=== PATIENT | female | born 1955 | race African-American/Black ===

== ENCOUNTER 2019-05-04 19:12 | Inpatient (IN) | payer MEDICARE, OTHER ==
[~2019-05-04] VITALS: Ht 170.2 cm; Wt 107.5 kg
--- NOTE | 2019-05-04 19:29 | NUR ---
BIB EMS FOR AGRESSIVE ABEHAVIOR AND PARANOIA. PT IS CALM AND COOPERATIVE ON ASSESSMENT. DENIES SI/HI. DENIES HALLUCINATIONS. REPORTS BEING UNSURE OF WHY SHE IS HERE. DENIES PAIN, SOB, DIZZINESS, WEAKNESS. NO ACUTE DISTRESS NOTED. SKIN WARM, DRY, INTACT. AOX3, VSS, RR EVEN AND UNLABORED ON RA. NON-AMBULATORY. READY FOR EVAL.
[2019-05-04 19:47] LABS: BASOPHILS % (AUTO) 0.5 % (0.0-2.0); EOSINOPHILS % (AUTO) 3.5 % (0.0-6.0); HEMATOCRIT 41 % (33-45); HEMOGLOBIN 13.7 g/dL (11.5-14.8); LYMPHOCYTES # (AUTO) 2.6 /CMM (0.8-4.8); LYMPHOCYTES % (AUTO) 39.5 % (20.0-44.0); MEAN CORPUSCULAR HGB CONC 34 g/dl (31.0-36.0); MEAN CORPUSCULAR VOLUME 88 fL (82-100); MONOCYTES # (AUTO) 0.5 /CMM (0.1-1.30); MONOCYTES % (AUTO) 7.1 % (2.0-12.0); NEUTROPHILS # (AUTO) 3.3 /CMM (1.8-8.9); NEUTROPHILS % (AUTO) 49.4 % (43.0-81.0); PLATELET COUNT (AUTO) 258 /CMM (150-450); WHITE BLOOD COUNT (AUTO) 6.6 K/uL (4.3-11.0)
[2019-05-04 20:00] LABS: CALCIUM, SERUM 9.2 mg/dL (8.5-10.1); CARBON DIOXIDE 28 mmol/L (21-32); CHLORIDE 107 mmol/L (98-107); GLUCOSE 122 mg/dL (74-106); POTASSIUM 3.9 mmol/L (3.5-5.1); SODIUM SERUM 144 mmol/L (136-145); UREA NITROGEN, BLOOD 16 mg/dL (7-18)
[2019-05-04 20:06] LABS: ALANINE AMINOTRANSFERASE 44 U/L (12-78); ALBUMIN 3.4 g/dL (3.4-5.0); ALCOHOL, BLOOD < 3 mg/dL (0-0); ALKALINE PHOSPHATASE 170 U/L (46-116); ASPARTATE AMINOTRANSFERASE 38 U/L (15-37); BILIRUBIN,TOTAL 0.2 mg/dL (0.2-1.0); TOTAL PROTEIN, SERUM 7.5 g/dL (6.4-8.2)
[2019-05-04 20:07] LABS: ACETAMINOPHEN 0 ug/ml (10-30)
--- NOTE | 2019-05-04 20:15 | NUR ---
BED ASSIGNMENT 213-B
--- NOTE | 2019-05-04 20:20 | NUR ---
PT UNABLE TO PROVIDE URINE SAMPLE AT THIS TIME. NOTIFIED.
--- NOTE | 2019-05-04 20:40 | NUR ---
CALLED [facility] WORKER. ON HER WAY
--- NOTE | 2019-05-04 20:58 | NUR ---
URINE COLLECTED AND SENT TO LAB
[2019-05-04 21:33] LABS: APPEARANCE,URINE Clear (CLEAR); BILIRUBIN,URINE Negative (NEGATIVE); BLOOD, URINE Trace-lysed Ery/uL (NEGATIVE); COLOR,URINE Yellow (YELLOW); KETONES,URINE Negative (NEGATIVE); LEUKOCYTE ESTERASE ,URINE Negative (NEGATIVE); NITRITE, URINE Negative (NEGATIVE); PROTEIN,URINE Negative (NEGATIVE); UGLUCOSE Negative (NEGATIVE); UROBILINOGEN,URINE 0.2 EU/dL (0.2)
[2019-05-04 21:34] LABS: BACTERIA,URINE None seen /HPF (None Seen); RBC,URINE 0-2 /HPF (0-2); SQUAMOUS EPITHELIAL CELL,UR Few /HPF (None Seen); WBC,URINE 0-2 /HPF (0-3)
--- NOTE | 2019-05-04 22:17 | NUR ---
REPORT GIVEN TO JANNA DOMINGUEZ FOR 214-A
--- NOTE | 2019-05-04 22:27 | NUR ---
PT TRANSFERRED TO UNIT VIA WHEELCHAIR
--- NOTE | 2019-05-04 22:30 | NUR ---
[facility] admissions nurse notes Admitted 63 YO female from ER. Pt admitted on 5150 due to aggressive behavior and delusional thinking. Upon face to face assessment, Pt is alert and oriented X3, feeling depressed, flat effect, and cooperative with care. Pt denies HI/SI at this time. No acute distress noted. Skin body assessment is done. Pt skin is intact. Pt rights handbook discussed to the patient. Pt belongings were inventoried and checked for contraband. Pt is under care psychiatric care of Dr. Monzon and under medical care of Dr. Gonzalez. Pt educated to the use of call martinez, bed alarm on, enviromental safety check done. Bed at low position and locked. Safety and fall precautions. Will continue to monitor Q 15 mins check for safety and behavior.
[2019-05-04 22:50] VITALS: BP 123/74
[2019-05-04] MEDS ORDERED: BLOOD SUGAR DIAGNOSTIC 1 EACH STRIP IN ONE (23:30)
[2019-05-04] MEDS ORDERED: MAG HYDROX/AL HYDROX/SIMETH 30 ML UDC PO PRN (23:30)
[2019-05-04] MEDS ORDERED: ZOLPIDEM TARTRATE 5 MG TABLET PO PRN (23:30)
[2019-05-04] MEDS ORDERED: LORAZEPAM 0.5 MG TABLET PO PRN (23:30)
[2019-05-04] MEDS ORDERED: MAGNESIUM HYDROXIDE 30 ML UDC PO PRN (23:30)
[2019-05-04] MEDS ORDERED: ACETAMINOPHEN 325 MG TABLET PO PRN (23:30)
[2019-05-04] MEDS ORDERED: BISA-79 (23:58)
[2019-05-04] MEDS ORDERED: MELA5TAB PO (23:58)
[2019-05-04] MEDS ORDERED: POLY17PO4 PO (23:58)
[2019-05-04] MEDS ORDERED: CARV12.5 PO (23:58)
[2019-05-04] MEDS ORDERED: ERGO800011 PO (23:58)
[2019-05-04] MEDS ORDERED: DOCU-141 PO (23:58)
[2019-05-04] MEDS ORDERED: GABA-534 PO (23:58)
[2019-05-04] MEDS ORDERED: NA P133E RC (23:58)
[2019-05-04] MEDS ORDERED: ICOS1CAP PO (23:58)
[2019-05-04] MEDS ORDERED: OMEG-153 PO (23:58)
[2019-05-04] MEDS ORDERED: MAGN400O21 PO (23:58)
[2019-05-04] MEDS ORDERED: ACET-868 PO ×2 (23:58)
[2019-05-04] MEDS ORDERED: CRAN1CAP6 PO (23:58)
[2019-05-04] MEDS ORDERED: FLUO20TA28 PO (23:58)
[2019-05-05 07:42] LABS: CREATININE 0.9 mg/dL (0.6-1.3)
[2019-05-05] MEDS ORDERED: ARIP20TA4 PO (07:44)
[2019-05-05] MEDS ORDERED: CLON0.5T4 PO (07:44)
[2019-05-05] MEDS ORDERED: ACET-2605 PO (07:44)
[2019-05-05] MEDS ORDERED: BISA10SU11 RC (07:44)
[2019-05-05 07:48] LABS: CHOLESTEROL 150 mg/dL (<200); HDL CHOLESTEROL 42 mg/dL (40-60); LDL 90 mg/dL (0-99); TRIGLYCERIDES 113 mg/dL (30-150)
[2019-05-05 08:00] VITALS: BP 124/66
--- NOTE | 2019-05-05 08:45 | NUR ---
spoke to dr. lomas about reconciling meds.
[2019-05-05] MEDS ORDERED: LORAZEPAM 0.5 MG TABLET PO PRN (11:30)
[2019-05-05] MEDS: FLUOXETINE HCL 20 MG CAPSULE PO SCH (11:39)
--- NOTE | 2019-05-05 11:59 | NUR ---
Family Contact: SW called the pts son, Pierre Roblero ([phone]), and was informed by a recording that the person is busy and to try back at another time.
--- NOTE | 2019-05-05 12:00 | NUR ---
Facility Contact: SW called [facility] ([phone]), and spoke to Jose in the admissions department who stated that the pt can return to their facility once she is stable for discharge.
--- NOTE | 2019-05-05 12:01 | NUR ---
Family Contact: SW called the pts brother, Dipak Richardson ([phone]), and left a voicemail stating that the SW would like to speak to him about the pts treatment and discharge plan.
--- NOTE | 2019-05-05 12:02 | NUR ---
Initial Discharge Plan: Pt currently resides at [facility] located at [address] [place] [address]; ([phone]). Per pt, she would like to return home. PAOLA called the facility and spoke to Jose in admissions who stated that the pt can return. PAOLA will work with the pt and the MD regarding appropriate discharge planning. PAOLA will form a safe and proper discharge plan.
[2019-05-05] MEDS: GABAPENTIN 100 MG CAPSULE PO SCH ×2 (13:28→18:16)
--- NOTE | 2019-05-05 15:25 | NUR ---
Group Note: SW encouraged the pt to attend group therapy on 05/05/19 at 2pm discussing suicidal urges and ideation. Pt stated in an angry tone of voice, "I am not crazy, I do not know how many more times I have to say that. I do not belong here, I do not have those problems, and I want to be let out today." PAOLA encouraged the pt to engage in her environment and asked her to sit in the group even if she cannot relate so that she can understand her peers better and have improved insight but the pt continuously refused.
--- NOTE | 2019-05-05 15:57 | NUR ---
spoke to dr. lomas about reconciling meds.
[2019-05-05 16:00] VITALS: BP 124/72
[2019-05-05] MEDS ORDERED: MISCELLANEOUS MED 1 EA EA PO PRN (16:00)
[2019-05-05] MEDS ORDERED: GABAPENTIN 300 MG CAPSULE PO SCH (17:00)
[2019-05-05] MEDS: POLYETHYLENE GLYCOL 3350 17 GM POWD.PACK PO SCH (18:16)
[2019-05-05 20:00] VITALS: BP 133/76
--- NOTE | 2019-05-05 20:00 | NUR ---
RECEIVED PATIENT RESTING IN HER BED, AWAKE, NO ACUTE DISTRESS NOTED.DEPRESSED, EASILY AGITATED , PARANOID COOPERATIVE AT THIS TIME, MED COMPLIANT, EASILY IRRITATED, REORIENTATION PROVIDED. ENVIRONMENTAL SAFETY CHECKS.ENCOURAGED FOR VERBALIZED , WILL CONTINUE TO MONITOR [id number] FOR SAFETY AND BEHAVIOR.
[2019-05-05] MEDS: CARVEDILOL 12.5 MG TABLET PO SCH (21:24)
[2019-05-05] MEDS ORDERED: Medication Not On Formulary EA (Melatonin 5 MG) PO SCH (22:00)
[2019-05-05] MEDS: QUETIAPINE FUMARATE 25 MG TABLET PO SCH (22:06)
--- NOTE | 2019-05-06 07:22 | NUR ---
RN NOTES : PT. RESETING IN HER BED, NO ACUTE DISTRESS NOTED , DENIED ANY DISCOMFORT AT THIS TIME , IN DURING SHIFT NO BEHAVIOR PROBLEMS NOTED , ENDORSE TO DAY NURSE FOR CONTINUIYT OF CARE.
[2019-05-06 08:00] VITALS: BP 132/64
[2019-05-06] MEDS: GABAPENTIN 100 MG CAPSULE PO SCH ×3 (08:46→16:35)
[2019-05-06] MEDS: POLYETHYLENE GLYCOL 3350 17 GM POWD.PACK PO SCH ×2 (08:46→16:35)
[2019-05-06] MEDS: CARVEDILOL 12.5 MG TABLET PO SCH ×2 (08:46→21:00)
[2019-05-06] MEDS: FLUOXETINE HCL 20 MG CAPSULE PO SCH (08:46)
[2019-05-06] MEDS: DOCUSATE SODIUM 100 MG CAPSULE PO SCH (08:46)
--- NOTE | 2019-05-06 15:08 | NUR ---
GROUP NOTE: SW encouraged pt to attend group on this present day discussing "discharge planning." Pt refused stating she wanted to remain in her bed but stated that she was going to return back home. When SW informed her that she will be returning to the SNF she came from pt stated that she lives at home. Pt appears confused and disoriented.
[2019-05-06 16:00] VITALS: BP 125/74
--- NOTE | 2019-05-06 20:00 | NUR ---
[facility]/NURSING NOTES: PT. IN BED AWAKE. NO DISTRESS OR AGITATION NOTED. QUIET AND COOPERATIVE. NO C/O PAIN OR DISCOMFORT. SAFETY ENVIRONMENT OBSERVED AT ALL TIMES. WILL CONTINUE TO MONITOR Q 15 MIN FOR SAFETY AND BEHAVIOR.
[2019-05-06 20:25] VITALS: BP 107/73
[2019-05-06] MEDS: QUETIAPINE FUMARATE 25 MG TABLET PO SCH (21:30)
[2019-05-07 08:00] VITALS: BP 117/64
[2019-05-07] MEDS: POLYETHYLENE GLYCOL 3350 17 GM POWD.PACK PO SCH ×2 (08:34→16:29)
[2019-05-07] MEDS: GABAPENTIN 100 MG CAPSULE PO SCH ×3 (08:34→16:29)
[2019-05-07] MEDS: DOCUSATE SODIUM 100 MG CAPSULE PO SCH (08:34)
[2019-05-07] MEDS: FLUOXETINE HCL 20 MG CAPSULE PO SCH (08:34)
[2019-05-07] MEDS: CARVEDILOL 12.5 MG TABLET PO SCH ×2 (08:35→21:27)
[2019-05-07 16:00] VITALS: BP 123/78
--- NOTE | 2019-05-07 17:50 | NUR ---
[facility]/RN PT JUST EAMON UP AFTER THE LUNCH. PT REQUESTED TO CHANGE DIET TO PUREED D/T ESOPHAGUS PROBLEMS
--- NOTE | 2019-05-07 19:30 | NUR ---
[facility] OPENING NOTE: PATIENT IN BED RESTING, IN NO APPARENT DISTRESS NOTED. ALERT AND ORIENTED X3, ABLE TO MAKE NEEDS KNOWN. PATIENT IS CALM AND COOPERATIVE WITH CARE. DENIES PAIN OR DISCOMFORT AT THIS TIME. SAFETY PRECAUTIONS IMPLEMENTED. BED ALARM ON AND IN LOCKED POSITION. WILL CONTINUE TO MONITOR FOR PATIENT'S SAFETY.
[2019-05-07 20:00] VITALS: BP 130/69
[2019-05-07] MEDS: QUETIAPINE FUMARATE 25 MG TABLET PO SCH (21:27)
[2019-05-08 08:00] VITALS: BP 107/63
[2019-05-08] MEDS: GABAPENTIN 100 MG CAPSULE PO SCH ×3 (08:28→17:13)
[2019-05-08] MEDS: POLYETHYLENE GLYCOL 3350 17 GM POWD.PACK PO SCH ×2 (08:28→17:13)
[2019-05-08] MEDS: DOCUSATE SODIUM 100 MG CAPSULE PO SCH (08:28)
[2019-05-08] MEDS: FLUOXETINE HCL 20 MG CAPSULE PO SCH (08:28)
[2019-05-08] MEDS: CARVEDILOL 12.5 MG TABLET PO SCH ×2 (08:30→21:09)
[2019-05-08 16:03] VITALS: BP 108/71
[2019-05-08 20:05] VITALS: BP 97/61
[2019-05-08 21:08] VITALS: BP 117/67
[2019-05-08] MEDS: QUETIAPINE FUMARATE 25 MG TABLET PO SCH (21:10)
[2019-05-09 08:00] VITALS: BP 118/63
[2019-05-09] MEDS ORDERED: ERGOCALCIFEROL (VITAMIN D 2) 50,000 UNIT CAPSULE PO SCH (09:00)
[2019-05-09] MEDS: FLUOXETINE HCL 20 MG CAPSULE PO SCH (09:41)
[2019-05-09] MEDS: GABAPENTIN 100 MG CAPSULE PO SCH ×3 (09:41→17:51)
[2019-05-09] MEDS: CARVEDILOL 12.5 MG TABLET PO SCH ×2 (09:41→21:00)
[2019-05-09] MEDS: POLYETHYLENE GLYCOL 3350 17 GM POWD.PACK PO SCH ×2 (09:42→17:51)
[2019-05-09] MEDS: DOCUSATE SODIUM 100 MG CAPSULE PO SCH (09:44)
[2019-05-09 16:00] VITALS: BP 119/63
[2019-05-09 20:11] VITALS: BP 94/63
[2019-05-09] MEDS: QUETIAPINE FUMARATE 25 MG TABLET PO SCH (22:11)
--- NOTE | 2019-05-10 06:43 | NUR ---
[facility] RN NOTE SKIN CHECK DONE, SKIN CLEAR. PT HAS CLUB FOOT. PICTURES TAKEN AND PLACED IN CHART. PT CALM AND COOPERATIVE. WILL CONTINUE TO MONITOR AND ENDORSE TO AM NURSE.
[2019-05-10 08:00] VITALS: BP 135/85
[2019-05-10] MEDS: GABAPENTIN 100 MG CAPSULE PO SCH ×3 (08:50→16:18)
[2019-05-10] MEDS: DOCUSATE SODIUM 100 MG CAPSULE PO SCH (08:50)
[2019-05-10] MEDS: FLUOXETINE HCL 20 MG CAPSULE PO SCH (08:50)
[2019-05-10] MEDS: POLYETHYLENE GLYCOL 3350 17 GM POWD.PACK PO SCH ×2 (08:51→16:18)
[2019-05-10] MEDS: CARVEDILOL 12.5 MG TABLET PO SCH ×2 (08:51→21:54)
--- NOTE | 2019-05-10 09:54 | NUR ---
[facility] NURSING NOTE RECEIVED PATIENT LYING IN BED, AWAKE, ALERT AND ORIENTED X3. CALM AND COOPERATIVE, WITHDRAWN AND ISOLATIVE. PERICARE RENDERED. NO S/S OF DISTRESS AT THIS TIME. PT BREATHING IS EVEN, UNLABORED WITH EQUAL RISE AND FALL OF THE CHEST. DENIES SI, HI, AT THIS TIME. NO COMPLAINTS OF PAIN. PT IS MEDICATION COMPLIANT. SAFETY CHECKS DONE. FALL PRECAUTION CONTINUED. BED ALARM ON. BED IN LOW LOCKED POSITION. CALL LIGHT WITHIN REACH.WILL CONTINUE TO MONITOR Q15MIN FOR MOOD, SAFETY AND BEHAVIOR.
[2019-05-10 16:00] VITALS: BP 111/63
--- NOTE | 2019-05-10 20:44 | NUR ---
[facility] RN OPENING NOTE: RECEIVED PATIENT AWAKE IN BED, ALERT AND ORIENTED X 3, CALM, COOPERATIVE, DEPRESSED MOOD, ANXIOUS, DISORGANIZED, NO AGITATION NOTED, DENIES SI/HI, DENIES AH/VH, SNACKS PROVIDED, NO SOB, NO ACUTE DISTRESS, BREATHING EVEN AND UNLABORED, NO S/S OF PAIN AND DISCOMFORT, WILL CONTINUE TO MONITOR Q15 MINS FOR SAFETY
[2019-05-10 20:55] VITALS: BP 105/59
[2019-05-10] MEDS: QUETIAPINE FUMARATE 25 MG TABLET PO SCH (21:54)
[2019-05-11 08:00] VITALS: BP 137/82
[2019-05-11] MEDS: GABAPENTIN 100 MG CAPSULE PO SCH ×3 (09:34→17:50)
[2019-05-11] MEDS: FLUOXETINE HCL 20 MG CAPSULE PO SCH (09:34)
[2019-05-11] MEDS: DOCUSATE SODIUM 100 MG CAPSULE PO SCH (09:34)
[2019-05-11] MEDS: POLYETHYLENE GLYCOL 3350 17 GM POWD.PACK PO SCH ×2 (09:35→17:50)
[2019-05-11] MEDS: CARVEDILOL 12.5 MG TABLET PO SCH ×2 (09:35→21:31)
--- NOTE | 2019-05-11 14:00 | NUR ---
Facility Contact: SW called [facility] ([phone]) and spoke Nikkie and informed her that the pt is going to be retunring to the facility the following day and she asked for a clinical to be sent to: [phone].
--- NOTE | 2019-05-11 14:00 | NUR ---
Family Contact: SW called the pts brother, Dipak Richardson ([phone]), and left a voicemail stating that the pt will be discharged from the hospital the following day and will be sent back to the facility.
--- NOTE | 2019-05-11 14:28 | NUR ---
Facility Contact: PAOLA faxed updated notes to [facility] with attn to Nikkie to the fax number: [phone].
[2019-05-11 16:00] VITALS: BP 115/67
--- NOTE | 2019-05-11 16:15 | NUR ---
Group Note: SW encouraged pt to attend group therapy on 05/11/19 at 2pm discussing aggressive behaviors and triggers. Pt stated that she does not want to participate in group and has been isolative upon admission. Pt stated that she does not get aggressive and the SW stated that was the reason that she was admitted and she refused to accept that statement.
[2019-05-11] MEDS: QUETIAPINE FUMARATE 25 MG TABLET PO SCH (21:31)
--- NOTE | 2019-05-11 21:44 | NUR ---
[facility] RN OPENING NOTE: RECEIVED PATIENT AWAKE IN BED, ALERT AND ORIENTED X 3, CALM, COOPERATIVE, VERBALIZED DEPRESSION, NO AGITATION NOTED, DENIES SI/HI, DENIES AH/VH, SNACKS PROVIDED, ENCOURAGE TO VERBALIZED FEELINGS, REDIRECTED THE PATIENT. NO SOB, NO ACUTE DISTRESS, BREATHING EVEN AND UNLABORED, NO S/S OF PAIN AND DISCOMFORT, WILL CONTINUE TO MONITOR Q15 MINS FOR SAFETY
[2019-05-12 06:33] VITALS: BP 108/74
[2019-05-12 08:00] VITALS: BP 105/68
[2019-05-12 09:26] VITALS: BP 105/68
[2019-05-12] MEDS: GABAPENTIN 100 MG CAPSULE PO SCH ×2 (09:26→12:20)
[2019-05-12] MEDS: FLUOXETINE HCL 20 MG CAPSULE PO SCH (09:26)
[2019-05-12] MEDS: DOCUSATE SODIUM 100 MG CAPSULE PO SCH (09:26)
[2019-05-12] MEDS: POLYETHYLENE GLYCOL 3350 17 GM POWD.PACK PO SCH (09:26)
[2019-05-12] MEDS: CARVEDILOL 12.5 MG TABLET PO SCH (09:26)
--- NOTE | 2019-05-12 12:45 | NUR ---
DR. EDWARDS GAVE AN ORDER TO D/C HOLD AND D/C TO [facility], TO CONTINUE SAME MEDS INCLUDING PRN AND TO FOLLOW UP WITH PSYCH AND MEDICAL DOCTORS.
--- NOTE | 2019-05-12 13:57 | NUR ---
Group Note: SW invited the patient to attend group therapy on 05/12/2019 1 pm to discuss what they would like to see change as a result of their stay in [facility]. The pt. was agreeable to attend group and stated that she needed a wheelchair to go to activities room. SW asked nurse for wheelchair assistance, Nurse informed SW that the pt. was going to be discharged at 1pm. SW informed patient. Pt. expressed understanding and was agreeable to plan.
--- NOTE | 2019-05-12 14:00 | NUR ---
NURSING DISCHARGE NOTE: PT WAS DISCHARGED TODAY AT 1400 TO [facility] LOCATED AT [address] [place], [place] [id number] . PT LEFT THE UNIT VIA GURNEY ACCOMPANIED BY 2 HEAD CHARRER TO [facility]BULZ TRIP #[id number]. PT'S BROTHER HAS BEEN NOTIFIED OF PT'S DISCHARGE. REPORT WAS GIVEN TO ALBERTO ESQUIVEL AT [phone]. PT IS A&OX3, CALM, COOPERATIVE, PLEASANT, MED COMPLIANT, DENIES SI/HI/AVH AT THE TIME OF DISCHARGE. NO S/S OF ANY DISTRESS NOTED. NO C/O PAIN OR ANY DISCOMFORT. DISCHARGE ORDER WAS GIVEN BY DR. EDWARDS WITH ORDER TO CONTINUE ALL PSYCHIATRIC MEDS. PT HAS BEEN MEDICALLY CLEARED FOR DISCHARGE BY DR. ALEXIS WITH ORDER TO CONTINUE ALL MEDICAL MEDS WELL. SKIN CHECK DONE, SKIN INTACT BUT PT REFUSED PHOTOS. VVS. PT WAS COOPERATIVE WITH DISCHARGE PAPERWORK AND HAS SIGNED ALL DISCHARGE PAPERS. ALL BELONGINGS WERE RETURNED TO PT WELL.
--- NOTE | 2019-05-12 15:40 | NUR ---
Discharge Note: Pt was discharged to back to [facility] located at [address] [place] [address]; ([phone]). Pt was transported via [facility] at 1PM. Pts brother, Dipak Richardson ([phone]), was notified of the discharge. Upon discharge, the pt appeared to be in a euthymic mood and presented with a calm affect. Pt appeared to be alert and oriented x4 (time, place, self and situation). Pt denied both suicidal and homicidal ideation as well as auditory and visual hallucinations. Pt will be under the care of psychiatrist, Dr. Monty García, located at [address] [place] [address]; and program writer, Dr. Varsha Garvey, located at [address] [facility] [address]; .
== END 2019-05-12 14:00 | DRG 885 ==
LOC: ER 19:17 → GPS 21:50
PROVIDERS: ADMIT Psychiatry & Neurology Psychiatry; ATTEND Nurse Practitioner Acute Care
DX: F25.1 Schizoaffective disorder, depressive type (principal); F29 Unspecified psychosis not due to a substance or known physiological condition; F41.9 Anxiety disorder, unspecified; I10 Essential (primary) hypertension; K57.90 Diverticulosis of intestine, part unspecified, without perforation or abscess without bleeding; F32.9 Major depressive disorder, single episode, unspecified; R13.10 Dysphagia, unspecified; Z81.8 Family history of other mental and behavioral disorders; Z79.899 Other long term (current) drug therapy; K21.9 Gastro-esophageal reflux disease without esophagitis; E78.5 Hyperlipidemia, unspecified; E66.9 Obesity, unspecified
CPT/HCPCS: 36415; 80048-TC; 80061-TC; 80076-TC; 80305; 81000-TC; 82565-TC; 82962-TC; 85025-TC; 87081-TC; 97530-TC; G0480